=== PATIENT | male | born 1950 | race Caucasian/White ===

== ENCOUNTER 2022-11-22 07:30 | Day surgery (SDC) | payer MEDICARE, BC ==
[2022-11-22] MEDS ORDERED: Propofol 200 MG/20 ML SDV IV ONE (07:31)
[2022-11-22] MEDS ORDERED: Sodium Chloride 0.9% 10 ML Syringe FLUSH PRN (07:45)
[2022-11-22] MEDS ORDERED: Lactated Ringers 1,000 ML IV SCH (07:45)
[2022-11-22] MEDS ORDERED: Simethicone Drops 40 MG/0.6 ML 30 ML Bottle PO ONE (08:59)
== END 2022-11-22 10:14 | disposition home or self-care (01) ==
LOC: FB.SDS 07:30
PROVIDERS: ATTEND Surgery
DX: Z12.11 Encounter for screening for malignant neoplasm of colon (principal); D12.6 Benign neoplasm of colon, unspecified; K57.30 Diverticulosis of large intestine without perforation or abscess without bleeding; K42.0 Umbilical hernia with obstruction, without gangrene; K40.90 Unilateral inguinal hernia, without obstruction or gangrene, not specified as recurrent; R22.1 Localized swelling, mass and lump, neck; K21.9 Gastro-esophageal reflux disease without esophagitis; E78.5 Hyperlipidemia, unspecified; I10 Essential (primary) hypertension; E66.9 Obesity, unspecified; Z86.010 Personal history of colon polyps; Z79.84 Long term (current) use of oral hypoglycemic drugs; Z79.899 Other long term (current) drug therapy; Z68.31 Body mass index [BMI] 31.0-31.9, adult
CPT/HCPCS: 00812; 82947; 88305; A9270-GY; J2704; J7120